=== PATIENT | female | born 1995 | race Caucasian/White ===

== ENCOUNTER 2021-10-26 12:55 | Inpatient (IN) | payer SELFPAY, OTHER ==
[2021-10-26] VITALS (15 sets, daily range): BP systolic 96–122; BP diastolic 50–87; PULSE 50–86; RESP 16; TEMP 36.7–37.1; O2SAT 93–98; BMI 26.6
[2021-10-26] MEDS: Oxytocin 30 units/NS 500 ml 30 UNITS/500 ML IV.SOLN 334 UNITS IV (13:10)
--- NOTE | 2021-10-26 13:26 | PCM.HP.OB ---
HPI - General General Date of Admission: 10/26/21 Date of Service: 10/26/21 Chief Complaint: delivery HPI Narrative MYLENE HERNANDEZ, is a 26 F who presents at 36 week gestation who presents complete and +3 station. 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 Has not had labs or GBS. Vital Signs Vital Signs Vital Signs: 10/26/21 13:09 10/26/21 13:09 10/26/21 13:22 Pulse Rate 81 Blood Pressure 122/87 H BP Systolic 122 BP Diastolic 87 Pulse Ox 93 10/26/21 13:22 Pulse Rate 72 Blood Pressure BP Systolic BP Diastolic Pulse Ox Labs Labs Labs: No Data to Display Assessment & Plan (1) 36 weeks gestation of : PLAN: - Pt presented to L&D precipitously delivering. See delivery note. Send panel. (2) Precipitous delivery: (3) No care in current :
--- NOTE | 2021-10-26 13:27 | PN_ITS ---
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 Ally Healy, DO Patient began pushing and delivered the head in the KATHY presentation. The head was delivered atraumatically and a loose nuchal cord ?1 was identified and easily reduced over the 's head. The anterior and posterior shoulders delivered without complication followed by the rest of the and the was placed on the maternal abdomen. Delayed cord clamping was employed when Dr. Astudillo walked in to resume care. The infant was crying and vigorous and moving all extremities.
--- NOTE | 2021-10-26 13:27 | OP.PCM_ITS ---
Problems Associated Problem List Diagnoses (1) No care in current : (2) Precipitous delivery: (3) 36 weeks gestation of : Report of Operation Date of Procedure: 10/26/21 Pre-Operative Diagnosis: 36 week gestation, single IUP, no care, pre cipitous delivery Post-Operative Diagnosis: As above Surgery/Procedure Performed:: Description of Surgical Findings:: Loose nuchal cord x 1 without compression. VMI in vertex presentation. No lacerations. Surgeon: Chrissie Astudillo Type of Anesthesia: None Special Medications: None Specimen's removed: Placenta Drains: None Estimated Blood Loss (mL): 100 Fluids Replaced: N/A Description of Procedure: I was called when patient presented to labor and delivery complete and +3 station. Upon presentation into the room, Dr. Loene was actively delivering the . The head was delivered and a loose nuchal cord x1 was reduced by Dr. Leone. The shoulders and body of the were delivered without any force or delay by Dr. Leone. A viable male infant was vigorous and placed on maternal abdomen. At this point I completed the delivery. The cord was clamped and cut after a 60 sec delay. Cord gases were obtained. The placenta was delivered with fundal massage. The placenta was noted to be normal-appearing and intact with three-vessel cord. No lacerations were noted. The fundus was firm and bleeding hemostatic. Vaginal sweep was performed. Sponge counts were correct. Grafts/Implants Used: None Complications None Admit VTE Documentation VTE Present on Admission: No
[2021-10-26 13:59] LABS: Absolute Lymphocyte Count 2.96 X10^3/uL (0.83-4.51); Absolute Neutrophil Count 12.3 X10^3/uL (2.0-7.7); Basophil# 0.03 X10^3/uL; Basophil% 0.2 % (0-1); Eosinophil# 0.04 X10^3/uL; Eosinophils% 0.2 % (0-5); Hematocrit 39.3 % (37-47); Hemoglobin 13.4 g/dL (12.0-15.0); Lymphocyte # 2.96 X10^3/ul (0.83-4.51); Lymphocyte % 18.3 % (19-41); Mean Corp Hgb Conc 34.1 g/dL (32-36); Mean Corpuscular Hgb 31.6 pg (27.0-32.0); Mean Corpuscular Volume 92.7 fL (81-99); Mean Platelet Vol. 11.5 fl (6.2-12.0); Monocyte# 0.81 X10^3/uL; NRBC Flagged by Analyzer 0 % (0-5); Neutrophil # 12.25 X10^3/uL (2.7-7.7); Neutrophil % 75.8 % (47-70); Platelet Count 161 K/mm3 (150-450); RBC Distribution Width CV 12.9 % (11.6-14.6); RBC Distribution Width SD 43.5 fl (35.1-43.9); Red Blood Count 4.24 M/mm3 (4.2-5.4); White Blood Count 16.2 K/mm3 (4.4-11.0)
[2021-10-26] MEDS: Ibuprofen 600 MG Tablet PO ×2 (14:37→21:11)
[2021-10-26 14:51] LABS: Rubella IgG Non-Reactive (Nonreactive); Syphilis Antibodies Non-reactive
[2021-10-26 18:00] LABS: Mucous, Urine 0 SEEN /hpf (<or=2+); White Blood Cells 0 SEEN /hpf (0-5)
[2021-10-26 18:02] LABS: Color, Urine Straw (Yellow); Glucose, Dipstick Normal (Normal); Ketone-Dipstick Negative (Negative); Leukocyte Esterase-Dipstick 25 /ul (Negative); Nitrite-Dipstick Negative (Negative); Occult Blood-Urine 250 /ul (Negative); Protein-Dipstick 15 mg/dl (Negative); Urine Bilirubin Dipstick Negative (Negative); Urine Clarity Clear (Clear); Urine Urobilinogen Normal (Normal)
[2021-10-26 18:10] LABS: Bacteria RARE /hpf (None Seen); Red Blood Cells-Urine 10-25 SEEN /hpf (0-5); Squamous Epithelial Cells - UA 0-5 SEEN /hpf (5-10)
[2021-10-26 18:14] LABS: Amphetamine Urine VISTA NEGATIVE (<1000 ng/mL); Barbiturate Urine VISTA NEGATIVE (< 200 ng/mL); Benzodiazepine Urine VISTA NEGATIVE (< 200 ng/mL); Cocaine Urine VISTA NEGATIVE (< 300 ng/mL); Ecstacy Urine VISTA NEGATIVE (< 500 ng/mL); Methadone Urine VISTA NEGATIVE (< 300 ng/mL); PCP Urine VISTA NEGATIVE (< 25 ng/mL); THC Urine VISTA NEGATIVE (< 50 ng/mL); Vista UDS pH Range 7
--- NOTE | 2021-10-26 19:56 | PCM.OP.BLANK ---
Operative Report Date of Procedure: 10/26/21 Patient began pushing and delivered the head in the KATHY presentation.? The head was delivered atraumatically and a loose nuchal cord ?1 was identified and easily reduced over the 's head.? The anterior and posterior shoulders delivered without complication followed by the rest of the and the infant was placed on the maternal abdomen.? Delayed cord clamping was employed when Dr. Astudillo walked in to resume care. The infant was crying and vigorous and moving all extremities.
[2021-10-27 03:11] VITALS: BP 100/52; PULSE 55; RESP 16; TEMP 36.6; O2SAT 96
--- NOTE | 2021-10-27 08:49 | PCM.PN.OB ---
Subjective Subjective pain well controlled, average lochia Objective Data Objective Data Vital Signs: Vital Signs Temp Pulse Resp BP Pulse Ox O2 Del Method 97.8 F 55 L 16 100/52 L 96 Room Air 10/27/21 03:11 10/27/21 03:11 10/27/21 03:11 10/27/21 03:11 10/27/21 03:11 10/27/21 03:11 Oxygen Delivery Method Room Air Weight: 79.379 kg Body Mass Index (BMI) 26.6 Intake & Output: Intake and Output for Last 24 Hours 10/25/21 10/26/21 10/27/21 23:59 23:59 23:59 Intake Total 459.25 / 459.25 Output Total 1100 / 1100 Balance -640.75 / -640.75 Lab / Micro Data Result Diagrams: 10/26/21 13:30 Labs: Laboratory Results - last 24 hr 10/26/21 13:30: WBC 16.2 H, RBC 4.24, Hgb 13.4, Hct 39.3, MCV 92.7, MCH 31.6, MCHC 34.1, RDW Std Deviation 43.5, RDW Coeff of Evelyn 12.9, Plt Count 161, MPV 11.5, Immature Gran % (Auto) 0.500, Neut % (Auto) 75.8 H, Lymph % (Auto) 18.3 L, Delta % (Auto) 5.0, Eos % (Auto) 0.2, Baso % (Auto) 0.2, Absolute Neuts (auto) 12.3 H, Absolute Lymphs (auto) 2.96, Nucleated RBC % 0 10/26/21 13:30: Syphilis Total Ab Non-reactive, Rubella IgG Antibody Non-Reactive 10/26/21 13:30: Blood Type A NEGATIVE, Antibody Screen NEGATIVE 10/26/21 17:42: Urine Color Straw, Urine Clarity Clear, Urine pH 7.0, Ur Specific [place] 1.010, Urine Protein 15 H, Urine Glucose (UA) Normal, Urine Ketones Negative, Urine Occult Blood 250 H, Urine Nitrite Negative, Urine Bilirubin Negative, Urine Urobilinogen Normal, Ur Leukocyte Esterase 25 H, Urine RBC 10-25 SEEN, Urine WBC 0 SEEN, Ur Squamous Epith Cells 0-5 SEEN, Urine Bacteria RARE, Urine Mucus 0 SEEN 08/31/22 17:42: Urine Opiates Screen NEGATIVE, Urine Methadone Screen NEGATIVE, Ur Barbiturates Screen NEGATIVE, Ur Phencyclidine Scrn NEGATIVE, Ur Amphetamines Screen NEGATIVE, MDMA (Ecstasy) Screen NEGATIVE, U Benzodiazepines Scrn NEGATIVE, Urine Cocaine Screen NEGATIVE, U Cannabinoids Screen NEGATIVE, Ur Drug Screen Comment Physical Exam Const alert and no apparent distress Narrative: Fundus firm, below umbilicus. Assessment & Plan (1) (spontaneous vaginal delivery): PLAN: Plan 36 week labor and delivery. and patient doing well. routine . Likely d/c home tomorrow.
[2021-10-27 09:18] VITALS: BP 107/65; PULSE 69; RESP 16; TEMP 36.7; O2SAT 96
--- NOTE | 2021-10-27 09:22 | NURSING ---
patient fundus normally sits off to the right. midline and slightly to right on assessment
[2021-10-27 10:06] LABS: HIV - WCH Non-Reactive (Nonreactive); Hepatitis B Surface Antigen Non-Reactive (Nonreactive); Hepatitis C Antibody Non-Reactive (Nonreactive)
[2021-10-27 13:24] VITALS: BP 104/56; PULSE 60; RESP 16; TEMP 36.7; O2SAT 97
[2021-10-27] MEDS: Ibuprofen 600 MG Tablet PO (18:14)
[2021-10-27 21:05] VITALS: BP 103/51; PULSE 62; RESP 16; TEMP 36.3; O2SAT 96
[2021-10-28 02:01] VITALS: BP 102/61; PULSE 60; RESP 16; TEMP 36.6; O2SAT 96
[2021-10-28 07:27] VITALS: BP 102/71; PULSE 75; PULSE 97; RESP 16; TEMP 36.4; O2SAT 97
--- NOTE | 2021-10-28 09:09 | PCM.PN.OB ---
Subjective Subjective No complaints Objective Data Objective Data Vital Signs: Vital Signs Temp Pulse Resp BP Pulse Ox O2 Del Method 97.6 F L 97 16 102/71 97 Room Air 10/28/21 07:27 10/28/21 07:27 10/28/21 07:27 10/28/21 07:27 10/28/21 07:27 10/28/21 07:27 Oxygen Delivery Method Room Air Weight: 175 lb Body Mass Index (BMI) 26.6 Intake & Output: Intake and Output for Last 24 Hours 10/26/21 10/27/21 10/28/21 23:59 23:59 23:59 Intake Total 459.25 / 459.25 Output Total 1100 / 1100 Balance -640.75 / -640.75 Lab / Micro Data Result Diagrams: 10/26/21 13:30 Labs: Laboratory Results - last 24 hr 10/26/21 13:30: Hep Bs Antigen Non-Reactive, Hepatitis C Antibody Non-Reactive, HIV 1&2 Antibody Non-Reactive Physical Exam Const alert, oriented x3 and no apparent distress HEENT normocephalic GI soft to palpation, non-tender and non-distended GI Narrative: fundus firm, mid & below umbilicus Extremity normal to inspection and no calf tenderness Assessment & Plan (1) (spontaneous vaginal delivery): COMMENT: PPD#2 PLAN: D/c home
--- NOTE | 2021-10-28 09:11 | DCINST_ITS ---
Discharge Instructions Diet Discharge Diet: No restrictions Activity May resume sexual activity in: 6 weeks Weight Bearing Status: Weight bearing as tolerated Dressing / Incision Call your doctor if you observe: Fever of 101 or Higher, Coldness, Increased Pain, Change in Color, Inability to urinate, Inability to have a bowel movement, Using more than 1 pad per hour, Shortness of breath, Dizziness, Fainting spells, Chest pain, Increased palpitations (irregular heartbeat), Calf discomfort and Uncontrolled pain Suture Line Care: Avoid Pulling/Pushing and Avoid Pinching/Bending Remove Dressing in: 1 week Cleanse incision/area with: Soap & Water Follow Up Care Please Follow Up With: Andrea Crow MD When: Follow up in 2 and 6 weeks for visits. Test Results: Test results from this visit will be discussed in further detail at your follow- up appointment, if applicable. Discharge Plan Admission Admit Date/Time: 10/26/21 12:55 Primary Reason for Your Visit: Vaginal delivery Attending Provider: Chrissie Astudillo Primary Care Provider: Brice Lim Discharge Orders/Prescriptions Prescriptions: New acetaminophen 500 mg Tablet 1,000 mg PO Q6H PRN PRN (Reason: Pain 1-10 Or Fever) Qty: 0 0RF ibuprofen 600 mg Tablet 600 mg PO Q6H PRN PRN (Reason: Pain Score 1-3) Qty: 0 0RF Continued 1 tab PO/SL DAILY ferrous sulfate 325 tab PO/SL DAILY Referrals / Follow Up: Brice Lim DO [Primary Care Provider] - Disposition Disposition (needs filled in before D/C Order can be placed): Home, Self Care
--- NOTE | 2021-11-03 14:53 | NURSING ---
Follow up phone call attempted. Phone rang several times then busy tone.
== END 2021-10-28 11:00 | disposition home or self-care (01) | DRG 807 ==
PROVIDERS: Admitting Provider Obstetrics & Gynecology; PCP Family Medicine; Referring Provider Obstetrics & Gynecology; Visit Provider Obstetrics & Gynecology
DX: O62.3 Precipitate labor (principal); Z37.0 Single live birth; O69.81X0 Labor and delivery complicated by cord around neck, without compression, not applicable or unspecified; Z3A.36 36 weeks gestation of pregnancy
CPT/HCPCS: 80307; 81001; 85025; 86703; 86762; 86780; 86803; 86850; 86900; 86901; 87340; 97110; 97164; 99218; G0378